=== PATIENT | male | born 1990 | race Caucasian/White ===

== ENCOUNTER 2019-07-21 11:10 | Emergency (ER) | payer BC ==
[2019-07-21 11:52] VITALS: BP 114/70
--- NOTE | 2019-07-21 11:53 | UC ---
General HPI - HPI Summary HPI Summary: 28 yo male presents requesting albuterol inhaler refill. He tells me that he has had asthma all his life, but recently did not have insurance and has been out of his albuterol inhaler for the last ~1 year. Over the last month he has had a few episodes of feeling short of breath with cough and wheezing - but usually improves with rest and slow deep breaths. 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 Denies fever, chills, cold symptoms, chest pain, abdominal pain, n/v. - History of Current Complaint Chief Complaint: UCGeneralIllness Stated Complaint: MEDICATION REFILL Time Seen by Provider: 07/21/19 11:52 Hx Obtained From: Patient Onset/Duration: Gradual Onset Current Severity: None Pain Intensity: 0 - Allergy/Home Medications Allergies/Adverse Reactions: Allergies Allergy/AdvReac Type Severity Reaction Status Date / Time No Known Allergies Allergy Verified 01/12/14 11:38 Home Medications: Home Medications Albuterol HFA INHALER* [Ventolin HFA Inhaler*] 1 puff INH QID PRN 07/21/19 [ History Confirmed 07/21/19] PMH/Surg Hx/FS Hx/Imm Hx Respiratory History: Asthma - Surgical History Surgical History: None - Family History Known Family History: Positive: None - Social History Occupation: Employed Full-time Lives: With Family Alcohol Use: Rare Substance Use Type: None Smoking Status (MU): Never Smoked Tobacco Review of Systems All Other Systems Reviewed And Are Negative: No Constitutional: Positive: Negative Skin: Positive: Negative Eyes: Positive: Negative ENT: Positive: Negative Respiratory: Positive: Cough Cardiovascular: Positive: Negative Gastrointestinal: Positive: Negative Neurological: Positive: Negative Psychological: Positive: Negative Physical Exam - Summary Physical Exam Summary: GENERAL: NAD. WDWN. No pain distress. SKIN: Dry cracking skin to hands. Mild Pitting of all nails. HEENT: Head: AT/NC Eyes: EOM intact. Conjunctiva clear without inflammation or discharge. Ears: Hearing grossly normal. TMs intact, no bulging, erythema, or edema. Nose: Nasal mucosa pink and moist. NTTP maxillary and frontal sinus. Throat: Posterior oropharynx without exudates, erythema, or tonsillar enlargement. Uvula midline. NECK: Supple. Nontender. No lymphadenopathy. CHEST: CTAB. No r/r/w. No accessory muscle use. Breathing comfortably and in no distress. CV: RRR. Pulses intact. Cap refill <2seconds NEURO: Alert. PSYCH: Age appropriate behavior. Triage Information Reviewed: Yes Vital Signs: Initial Vital Signs Temp 98.6 F 07/21/19 11:48 Pulse 76 07/21/19 11:48 Resp 18 07/21/19 11:48 BP 114/70 07/21/19 11:48 Pulse Ox 99 07/21/19 11:48 Vital Signs Reviewed: Yes Course/Dx - Course Course Of Treatment: Will refill his albuterol inhaler for his asthma. Rx for kenalog cream to use for suspected dyshidrotic eczema. He is in the process of finding a PCP - he was provided with Jocelyn Garrido's information for [facility] [place] PCP referral. Recommended he be further evaluated for psoriasis given his nail pitting. - Diagnoses Provider Diagnosis: Asthma, Dyshidrotic hand dermatitis Discharge ED - Sign-Out/Discharge Documenting (check all that apply): Patient Departure All imaging exams completed and their final reports reviewed: No Studies - Discharge Plan Condition: Stable Disposition: HOME Prescriptions: Albuterol HFA INHALER* [Ventolin HFA Inhaler*] 1 puff INH Q6H PRN #1 mdi PRN Reason: Sob/Wheezing Triamcinolone 0.1% CREAM (NF) [Kenalog 0.1% Cream (NF)] 1 applic TOPICAL BID #1 tube Patient Education Materials: Albuterol (By breathing), Asthma (ED), Eczema (ED) Referrals: No Primary Care Phys,NOPCP [Primary Care Provider] - [facility] [place] PHYSICIAN REFERRAL [Outside] - As Soon As Possible Additional Instructions: Please follow up with a primary doctor for routine care - Billing Disposition and Condition Condition: STABLE Disposition: Home
== END 2019-07-21 12:23 | disposition home or self-care (01) ==
LOC: UCEAST 11:10
DX: J45.909 Unspecified asthma, uncomplicated (principal); L30.1 Dyshidrosis [pompholyx]; Z76.0 Encounter for issue of repeat prescription; R05 Cough; Z79.899 Other long term (current) drug therapy
CPT/HCPCS: 99202; G0463